=== PATIENT | female | born 1960 | race African-American/Black ===

== ENCOUNTER 2016-12-14 11:49 | Inpatient (IN) | payer OTHER ==
[~2016-12-14] VITALS: Ht 165.1 cm; Wt 132.1 kg
--- NOTE | ~2016-12-14 | WRIGHTHP ---
[place], [place] PATIENT HISTORY AND PHYSICAL EXAM NAME: SHAUNNA FREEDMAN [facility] #: [id number] UNIT #: [id number] ROOM: 411 DOCTOR: JOHANN VILLAGRAN MD BIRTHDATE: [birth year] DOS: 12/14/2016 HISTORY OF PRESENT ILLNESS: 1. The patient is a 56-year-old female with a past medical history of severe chronic hypocalcemia. The patient has history of normal parathyroid hormone and calcitonin levels. 2. Poor compliance with treatment. 3. History of thyroidectomy in the year of 1999 and hypothyroidism. 4. Vitamin D deficiency, severe. 5. Chronic primary insomnia. 6. Morbid obesity. 7. Benign essential hypertension. 8. GERD and esophagitis. 9. Hypothyroidism. The patient presented to the Emergency Department for increased weakness, shortness of breath, like she has when she has very low calcium levels. The patient was found to have a low calcium level of 5.5 in the Emergency Department and she was only taking her calcium pills once a day instead of 3 times a day. The patient also had low potassium of 3.3 and elevated C-reactive protein. The patient was also found to have mild congestive heart failure on the chest x-ray. Significant fatigue for the last several weeks ____ dyspnea on exertion. REVIEW OF SYSTEMS: LUNGS: Some increasing shortness of breath and dyspnea on exertion. GASTROINTESTINAL: No nausea, vomiting or diarrhea, but she does have constipation. CARDIOVASCULAR SYSTEM: No chest pain or palpitations. SOCIAL HISTORY: Lives by herself. Denies smoking cigarettes, alcohol and drug abuse. FAMILY HISTORY: Noncontributory. MEDICATIONS: The patient is taking calcium once a day, vitamin D, levothyroxine, metoprolol, and omeprazole. FAMILY HISTORY: Noncontributory. ALLERGIES: No known drug allergies. PHYSICAL EXAMINATION: GENERAL: Alert and oriented x 3, no visible distress, morbidly obese. HEENT AND NECK: Extraocular movements are intact. Sclerae are anicteric. Oral mucosa is moist and clean. No obvious facial weakness. Neck is supple without any lymphadenopathy. No thyromegaly. No JVD. No carotid arterial bruits. LUNGS: Clear to auscultation. No wheezing. No rhonchi. [place], [place] PATIENT HISTORY AND PHYSICAL EXAM NAME: SHAUNNA FREEDMAN [facility] #: [id number] UNIT #: [id number] ROOM: 411 DOCTOR: JOHANN VILLAGRAN MD BIRTHDATE: [birth year] CARDIOVASCULAR SYSTEM: Heart rate is regular in rate and rhythm. S1 and S2 normally audible. No significant murmur or any other abnormal cardiac sounds. ABDOMEN: Soft, nontender. No obvious organomegaly. Bowel sounds are present. No obvious herniation. EXTREMITIES: Without significant cyanosis or edema. Warm to touch. CENTRAL NERVOUS SYSTEM: Alert and oriented x 3. Cranial nerves II-XII are intact. Speech is normal. The patient is able to move all extremities. Normal muscle strength. Deep tendon reflexes are equal on both sides. Plantars were downgoing. IMPRESSION: 1. The patient with severe hypocalcemia and some hypokalemia resulting in significant tiredness and weakness. I will replace her calcium with IV calcium infusion and follow her calcium levels and potassium levels. The patient has been checked in the past with no signs of any thyroid hormone abnormality. The patient's calcitonin and parathyroid hormone levels will be checked. 2. Hypothyroidism. The patient on Synthroid, but probably noncompliant with taking her medications properly, so she appears to be severely hypothyroid. Her TSH levels were elevated. 3. Benign essential hypertension with controlled blood pressures. Continue metoprolol. 4. Gastroesophageal reflux disease and esophagitis, controlled with Prilosec. 5. Morbid obesity and poor compliance with diet. 6. Hypokalemia to be treated with extra potassium supplements. I will also check her magnesium level. JOHANN VILLAGRAN MD CM:HISPHYS:PATIENT HISTORY AND PHYSICAL EXAMINATION 00 [phone] JOHANN VILLAGRAN MD 12/14/161940 interface
--- NOTE | ~2016-12-14 | DS ---
[place], [place] DISCHARGE SUMMARY NAME: SHAUNNA FREEDMAN [facility] #: [id number] UNIT #: [id number] ROOM: 411 DOCTOR: JOHANN VILLAGRAN MD BIRTHDATE: [birth year] DOS: 12/16/2016 DISCHARGE DIAGNOSES: 1. Acute diastolic type congestive heart failure, resolved. 2. Severe hypocalcemia, improved with calcium replacement. 3. Severe generalized weakness, improved with treatment. 4. Hypothyroidism with elevated TSH. 5. Benign essential hypertension with controlled blood pressures. 6. Vitamin D deficiency, elevated troponin I level, slight elevation, evaluated by Cardiology. 7. Gastroesophageal reflux disease and esophagitis, asymptomatic. 8. Morbid obesity with working on diet. 9. Chronic primary insomnia. 10. Vitamin D deficiency. 11. History of thyroidectomy and hypothyroidism in the year 1999. 12. Poor compliance with treatment and followup. 13. Severe and chronic hypocalcemia with normal parathyroid levels. HOSPITAL COURSE: The patient was admitted when she presented with increased weakness and shortness of breath and she was found to be in acute congestive heart failure, diastolic type, and severe hypocalcemia. The patient was forgetting to take her medications as well as thyroid meds. The patient also found to be hypothyroid. The patient was admitted and treated with calcium supplementation and hydration, and she was also seen by Cardiology. An echocardiogram was performed by Cardiology and she was cleared for discharge since she is feeling very well and she is asymptomatic now. Calcium level has improved to 7.3, and she is on 3 pills of calcium a day instead of 1 pill a day that she was taking at home and even, missing to take that off and on. Rule out for myocardial infarction with serial cardiac enzymes. Her first set of cardiac enzymes was minimally elevated at 0.073, which was evaluated by Cardiology and no further workup was recommended. A 2D echo was performed. The patient is asymptomatic. I will get a clearance from Cardiology prior to discharge. The patient was kept on heparin, which was finally discontinued by Cardiology. Now, Cardiology are recommending an outpatient stress test. DISCHARGE MANAGEMENT: Famotidine 10 mg a day, ibuprofen 800 mg b.i.d. p.r.n., omeprazole 20 mg a day, Citracal with vitamin D____3 times a day, levothyroxine 250 mcg daily. The patient can go back to work on Tuesday and follow with me on Tuesday. [place], [place] DISCHARGE SUMMARY NAME: SHAUNNA FREEDMAN UNIT #: [id number] ROOM: 411 DOCTOR: TYSHAWN REILLY,JOHNAN Patel BIRTHDATE: [birth year] JOHANN VILLAGRAN MD CM:ALANNA [phone] JOHANN VILLAGRAN MD 12/16/16 230 interface
--- NOTE | ~2016-12-14 | CON ---
[place], [place] REPORT OF CONSULTATION NAME: SHAUNNA FREEDMAN UNIT #: [id number] ROOM: 411 DOCTOR: SOTERO REILLY,ALBIN BIRTHDATE: [birth year] DOS: 12/15/2016 CARDIOLOGY CONSULTATION REASON FOR CONSULTATION: Congestive heart failure. CONSULTING PHYSICIAN: Devin Partida MD CLINICAL HISTORY: The patient is a 56-year-old patient with history of chronic hypocalcemia, vitamin D deficiency, morbid obesity, hypertension, GERD, came to the Emergency Room with increased weakness and shortness of breath. She denies any edema or orthopnea, no PND, no chest pain, palpitations or dizziness. No nausea, vomiting or diarrhea. Cardiology consult for further recommendations. She denies any headache. No blurred vision or double vision. No tingling, numbness or weakness. No vomiting, diarrhea, no hematemesis, no hematuria. No joint tenderness or pains. Her only complaint is generalized weakness and also some shortness of breath. REVIEW OF SYSTEMS: Review of the 8 systems negative except as mentioned above. PAST MEDICAL HISTORY: 1. Hypertension. 2. Acid reflux. 3. Morbid obesity. 4. Chronic hypocalcemia. 5. History of thyroid surgery with hypothyroidism. 6. History of noncompliance with medications. PAST SURGICAL HISTORY: History of thyroid surgery in 1999. FAMILY HISTORY: Noncontributory. SOCIAL HISTORY: The patient lives by herself. Denies any tobacco or alcohol use and the patient does not use any illicit drugs. HOME MEDICATIONS: Reviewed. ALLERGIES: The patient has no known drug allergies. PHYSICAL EXAMINATION: VITAL SIGNS: Blood pressure 150/88, pulse 78, respiratory rate 14. GENERAL: Alert, comfortable, in no acute distress. HEENT: Pupils are round and equal. No jaundice. Tongue was moist and pharynx was clear. NECK: Supple. No distended neck veins. No carotid bruits. CHEST: Symmetrical, nontender. LUNGS: Clear to auscultation bilaterally. HEART: Regular rhythm, no S3, no palpable thrills. ABDOMEN: Obese, nontender. Bowel sounds normal. EXTREMITIES: Showed trace edema. Distal pulses are palpable. [place], [place] REPORT OF CONSULTATION NAME: SHAUNNA FREEDMAN UNIT #: [id number] ROOM: [facility] DOCTOR: SOTERO REILLY,ALBIN BIRTHDATE: [birth year] SKIN: Warm and dry. No cyanosis, no clubbing. NEUROLOGIC: The patient is alert, oriented. No focal neurologic deficit. RECTAL: Deferred. GENITOURINARY: Deferred. REVIEW OF THE DIAGNOSTIC TESTS: EKG showed sinus rhythm, right atrial enlargement, LV hypertrophy, normal QT interval. There is T inversion in lead 1 and aVL. CBC, chemistry, labs reviewed. Total CPK of 467, MB 1.9, the troponin was 0.04, hemoglobin 9.8. Potassium 3.4, creatinine 1.25, calcium 5.7, TSH 12.9. IMPRESSION: 1. Dyspnea, possible acute on chronic diastolic heart failure. 2. Borderline elevation of troponin. 3. Anemia. 4. Hypokalemia. 5. Acute renal insufficiency. 6. Hypertension. 7. Hypocalcemia. 8. History of hypothyroidism. 9. Diet controlled diabetes. RECOMMENDATIONS: 1. She denies any chest pain. Her breathing is much better. 2. She did receive Lasix yesterday. 3. Repeat her cardiac enzymes and check 2D echo for LV function and valvular function. 4. Her electrolytes are being monitored and managed by Dr. Partida. 5. Further recommendations will be based on her symptoms and her echo findings and her cardiac enzymes. 6. Possibly she would need a stress test prior to discharge. ALBIN BEY MD CM:CONSTR:REPORT OF CONSULTATION 2232 12/16/16 0529 interface
--- NOTE | ~2016-12-14 | PR ---
[place], [place] PROGRESS NOTE NAME: SHAUNNA FREEDMAN UNIT #: [id number] ROOM: 411 DOCTOR: ALBIN BEY MD BIRTHDATE: [birth year] DOS: 12/16/2016 REASON FOR VISIT: Congestive heart failure. SUBJECTIVE: The patient is feeling better. Denies any shortness of breath. She is more energetic and less fatigued. No dizziness, no palpitations, no nausea, vomiting. No headaches. No blurred vision or double vision. No cough or hemoptysis. No PND or orthopnea. REVIEW OF SYSTEMS: Review of the 8 systems negative except as described above. RHYTHM STRIPS: The patient in sinus rhythm. PHYSICAL EXAMINATION: VITAL SIGNS: Blood pressure 148/88, respiratory rate was 18, heart rate 92. GENERAL: Alert, comfortable, in no acute distress. HEENT: Pupils round, equal, no jaundice. NECK: Supple, no distended neck veins, no carotid bruit. CHEST: Nontender. LUNGS: Clear to auscultation bilaterally. HEART: Regular rhythm, no S3. ABDOMEN: Obese, nontender. Bowel sounds normal. EXTREMITIES: Showed trace edema. Distal pulses are palpable. SKIN: Warm and dry. No cyanosis, no clubbing. RECTAL: Deferred. IMPRESSION: 1. Acute diastolic heart failure, much better. 2. Generalized weakness, much improved. 3. Hypocalcemia per Dr. Partida. 4. History of hypothyroidism per Dr. Partida. 5. Hypertension, monitor her blood pressures closely and adjust medications. 6. Elevated total CPK, noncardiac. 7. I will check 2D echo. 8. We will discontinue heparin since her troponins are unremarkable and she has no chest pain. 9. Cardiology will see as needed and then she will need outpatient stress testing. 10. Modification for diet, exercise, weight loss discussed. [place], [place] PROGRESS NOTE NAME: TANOKITASHAUNNA R UNIT #: [id number] ROOM: 411 DOCTOR: ALBIN BEY MD BIRTHDATE: [birth year] ALBIN BEY MD CM:ENMA [id number] ALBIN BEY MD 12/16/16 1647 interface
--- NOTE | ~2016-12-14 | PR ---
[place], [place] PROGRESS NOTE [facility] [id number] UNIT #: [id number] ROOM: 411 DOCTOR: JOHANN VILLAGRAN MD BIRTHDATE: [birth year] DOS: 12/15/2016 SUBJECTIVE: The patient continues to improve. She is feeling stronger with the treatment. OBJECTIVE: VITAL SIGNS: Blood pressure 147/91, heart rate of 78 beats per minute, breathing 20 times per minute, afebrile. GENERAL APPEARANCE: The patient is alert and oriented x 3, in no visible distress. Obesity and generalized weakness. HEENT AND NECK: Exam within normal limits. CARDIOVASCULAR SYSTEM: Heart rate is regular in rate and rhythm. S1 and S2 normally audible. LUNGS: Clear to auscultation. ABDOMEN: Soft, nontender. No obvious organomegaly. Bowel sounds are present. EXTREMITIES: Without significant cyanosis or edema. IMPRESSION: 1. The patient with severe hypocalcemia from not taking enough calcium at home. The patient has no known history of hypoparathyroidism and her levels were ordered again, the results are still pending. 2. Negative cardiac enzymes. 3. Severe hypothyroidism. The patient not taking her pills regularly at home. The patient restarted on her Synthroid. Her TSH levels were elevated, but free T4 levels have been normal. The patient is taking 250 mcg of Synthroid daily now. 4. Hypokalemia for which the patient will get extra potassium supplements today. Her magnesium level was checked to be normal. 5. Benign essential hypertension with normalized blood pressures with treatment. 6. Morbid obesity. The patient is working with dietary. JOHANN VILLAGRAN MD CM:PNTRANS [id number] JOHANN VILLAGRAN MD 12/15/16 2253 interface
[~2016-12-14 11:49] MED LIST: Cimetidine400 MG PO; LISINOPRIL10 MG PO; Oscal,Oyster S500 MG PO; PRILOSEC20 M2 PO; SEPTRA DS 800 M1 TAB PO; SYNTHROID0.15 MG PO; Synthroid,Lev200 MCG PO; Synthroid,Levo50 MCG PO; TRAMADOL HCL50 MG PO; VITAMIN D5000 I3 PO; [UNRECOGNIZED DRUG - OTHER] PO
[2016-12-14 11:53] VITALS: BP 173/100
[2016-12-14 12:16] LABS: BASO % 0.4 % (0.0-1.0); EOS % 0.4 % (1.0-4.0); HEMATOCRIT 31.8 % (37.0-47.0); HEMOGLOBIN 9.8 g/dl (12.0-16.0); IG # 0.1 10*3/uL (0.0-0.1); LYMPH # 2.2 10*3/uL (1.3-4.4); LYMPH % 21.9 % (27.0-41.0); MEAN CELL VOLUME 76.8 fl (81.0-99.0); MEAN CORPUSCULAR HGB 23.7 pg (27.0-31.0); MEAN CORPUSCULAR HGB CONC 30.8 g/dl (33.0-37.0); MEAN PLATELET VOLUME 9.8 fl (9.6-12.3); MONO # 0.7 10*3/uL (0.1-1.0); MONO % 7.1 % (3.0-9.0); NEUT % 68.8 % (47.0-73.0); NUCLEATED RED BLOOD CELL 0.4 % (0.0-0.0); PLATELET COUNT AUTOMATED 399 10*3/uL (130-400); RED BLOOD COUNT 4.14 10*6/uL (4.10-5.10); WHITE BLOOD COUNT 10.2 10*3/uL (4.8-10.8)
[2016-12-14 12:24] LABS: INTERNATIONAL NORM RATIO 1.1 (2.0-3.5)
[2016-12-14 12:34] LABS: BILIRUBIN 1+ (NEGATIVE); BLOOD 1+ (NEGATIVE); CLARITY SL CLOUDY (CLEAR); COLOR YELLOW (YELLOW); GLUCOSE NEGATIVE (NEGATIVE); KETONE NEGATIVE (NEGATIVE); LEUKO ESTERASE TRACE (NEGATIVE); NITRITE NEGATIVE (NEGATIVE); PROTEIN 2+ (NEGATIVE)
[2016-12-14 12:34] LABS: ALBUMIN 3.3 gm/dl (3.1-4.5); BILIRUBIN, TOTAL 1.3 mg/dl (0.2-1.0); C-REACTIVE PROTEIN 5.44 MG/DL (0-0.3); CKMB 1.8 ng/ml (0.5-3.6); MAGNESIUM 1.9 mg/dL (1.5-2.1); POTASSIUM 3.3 mmol/L (3.5-5.1); TOTAL PROTEIN 8.5 gm/dL (6.4-8.2); TROPONIN I 0.038 ng/ml (<0.045)
[2016-12-14 12:51] LABS: URINE REFLEX COMMENT YES (NO)
[2016-12-14 12:53] LABS: BACTERIA 2+; WBC 16-20 wbc/hpf (0-5)
[2016-12-14 14:04] VITALS: BP 174/100
[2016-12-14 14:39] LABS: THYROID STIM HORMONE (HS) 12.9 uIU/ml (0.358-4.75)
[2016-12-14 15:00] VITALS: BP 172/100
[2016-12-14] MEDS ORDERED: ALLEGRA60 M2 PO (16:45)
[2016-12-14 20:00] VITALS: BP 170/118
[2016-12-15] VITALS: BP 162/100
[2016-12-15 03:20] VITALS: BP 147/91
[2016-12-15 07:33] LABS: POTASSIUM 3.4 mmol/L (3.5-5.1)
[2016-12-15 08:00] VITALS: BP 140/80; BP 150/88
[2016-12-15 12:00] VITALS: BP 140/60
[2016-12-15 15:27] LABS: TROPONIN I 0.026 ng/ml (<0.045)
[2016-12-15 17:16] VITALS: BP 142/78
[2016-12-15 20:00] VITALS: BP 140/80
[2016-12-16] VITALS: BP 160/80
[2016-12-16 06:56] LABS: POTASSIUM 3.8 mmol/L (3.5-5.1)
[2016-12-16 08:00] VITALS: BP 140/98
[2016-12-16 12:00] VITALS: BP 156/88
[2016-12-16 16:00] VITALS: BP 158/82
[2016-12-16] MEDS ORDERED: OYSTER SHELL CA1 T23 PO (17:39)
== END 2016-12-16 18:00 | disposition home or self-care (01) | DRG 292 ==
LOC: ED 11:49 → EDHOLD 14:55 → 4E 15:43
PROVIDERS: Emergency Medicine; Internal Medicine; Internal Medicine Cardiovascular Disease
DX: I11.0 Hypertensive heart disease with heart failure (principal); E83.51 Hypocalcemia; D64.9 Anemia, unspecified; E11.9 Type 2 diabetes mellitus without complications; E89.0 Postprocedural hypothyroidism; I50.31 Acute diastolic (congestive) heart failure; K21.0 Gastro-esophageal reflux disease with esophagitis; E66.01 Morbid (severe) obesity due to excess calories; F51.04 Psychophysiologic insomnia; E87.6 Hypokalemia; Z91.19 Patient's noncompliance with other medical treatment and regimen; Z68.42 Body mass index [BMI] 45.0-49.9, adult

== ENCOUNTER → 2017-01-27 | Outpatient (CLI) | payer OTHER ==
[~2017-01-27] MED LIST changes: +ALLEGRA60 M2 PO; +OYSTER SHELL CA1 T23 PO
== END | disposition home or self-care (01) ==
LOC: US 17:53
DX: R60.0 Localized edema (principal)

== ENCOUNTER 2017-02-01 12:39 | Inpatient (IN) | payer OTHER ==
[~2017-02-01] VITALS: Ht 165.1 cm; Wt 129.9 kg
--- NOTE | ~2017-02-01 | PR ---
[place], [place] PROGRESS NOTE NAME: SHAUNNA FREEDMAN [facility] #: [id number] UNIT #: [id number] ROOM: 505 DOCTOR: KEELEY REILLYALEXIS Chuy BIRTHDATE: [birth year] DOS: 02/05/2017 NEPHROLOGY FOLLOWUP NOTE SUBJECTIVE: The patient was seen and examined. She is awake and alert. She denies shortness of breath, nausea or vomiting. She denies any muscle twitching. She is anxious to be discharged to home. She did receive a dose of IV calcium today. I was called actually earlier today, not knowing her situation very well, but did give an order to give 2 grams of calcium gluconate IV. PHYSICAL EXAMINATION: VITAL SIGNS: Showed a temperature of 97.9, pulse 68, respirations 20, blood pressure 160/98. HEENT: Shows no JVD. LUNGS: Clear. HEART: Normal S1, S2. No rub, thrill or gallop. ABDOMEN: Soft, nontender. There is no organomegaly. EXTREMITIES: Showed no edema. SKIN: Showed no rash. LABORATORY DATA: Sodium 142, potassium 3.6, CO2 of 31, BUN 19, creatinine 1.06, glucose 101, calcium 6.3, phosphorus 5.5. Vitamin D level 71.8. Albumin of 2.6. Magnesium of 1.6. Neck ultrasound was reviewed, which did not reveal any abnormalities that I can gather. IMPRESSION AND PLAN: 1. Hypocalcemia. This is a chronic issue. The patient should continue her calcium supplements. She is on [place] plus D. She should continue this and I did note her phosphorus was somewhat on the higher side and she is taking Tums with meals. We would recommend two Tums with meals on discharge. 2. Hypertension. Continue medications. She is on a thiazide, which hopefully she may develop a side effect of hypercalcemia with this, to help her situation. 3. Hypokalemia. This is stable. She is on supplementation, which should continue on a thiazide diuretic. 4. Anemia. Follow H and H. 5. From a renal standpoint, she is acceptable for discharge. As mentioned, she should go home on 2 Tums with meals plus her calcium plus vitamin D supplementation she is already taking. Her other medications can continue as ordered. She should have labs drawn early next week and she should follow up in our office as well as her PCP's office. [place], [place] PROGRESS NOTE NAME: SHAUNNA FREEDMAN UNIT #: [id number] ROOM: [facility] DOCTOR: KEELEY REILLY,ALEXIS Vera BIRTHDATE: [birth year] ALEXIS MINA MD CM:ENMA [id number] ALEXIS MINA MD 02/07/17 0013 interface
--- NOTE | ~2017-02-01 | WRIGHTHP ---
[place], [place] PATIENT HISTORY AND PHYSICAL EXAM NAME: SHAUNNA FREEDMAN [facility] #: [id number] UNIT #: [id number] ROOM: [facility] DOCTOR: JOHANN VILLAGRAN MD BIRTHDATE: [birth year] DOS: 02/01/2017 HISTORY OF PRESENT ILLNESS: The patient is a 56-year-old female who presented to the Emergency Department with increasing complaints of weakness. For about 3 days, the patient has had some diarrhea and dry heaves and she was feeling weaker and she had not been eating good for a few days. The patient was evaluated in the Emergency Department and again found to be severely hypocalcemic and also hypokalemic with generalized weakness and recommended for admission and further management. After admission, Nephrology had been consulted to help me manage her severe and chronic hypocalcemia without hypoparathyroidism. The patient also is hypothyroid. The patient states she was taking her calcium supplements regularly. No chest pain, no shortness of breath. No other GI or urinary symptoms. PAST MEDICAL HISTORY: Diastolic type congestive heart failure; chronic severe hypocalcemia, resistant to treatment with normal parathyroid hormone levels in the past. REVIEW OF SYSTEMS: LUNGS: No increasing shortness of breath. GASTROINTESTINAL: The patient had recent diarrhea and dry heaves for 2 to 3 days. CARDIOVASCULAR: No chest pains or palpitations. FAMILY HISTORY: Noncontributory. SOCIAL HISTORY: Denies smoking cigarettes, alcohol, and drug abuse. HOME MEDICATIONS: Citracal 3 times a day, metoprolol 100 mg daily, potassium chloride 20 mEq daily, Bumex 0.5 mg daily, omeprazole 20 mg daily, levothyroxine 250 mcg daily. ALLERGIES: No known drug allergies. PHYSICAL EXAMINATION: GENERAL: The patient is alert and oriented x 3, morbidly obese, in no visible distress, just generalized weakness. VITAL SIGNS: Blood pressure 168/116, heart rate of 88 beats per minute, breathing 18 times per minute, temperature 98.3 degrees Fahrenheit. HEENT AND NECK: Extraocular movements are intact. Sclerae are anicteric. Oral mucosa is moist and clean. No obvious facial weakness. Neck is supple without any lymphadenopathy. No thyromegaly. No JVD. No carotid arterial bruits. LUNGS: Clear to auscultation. No wheezing. No rhonchi. CARDIOVASCULAR SYSTEM: Heart rate is regular in rate and rhythm. S1 and S2 normally audible. No significant murmur or any other abnormal cardiac sounds. ABDOMEN: Soft, nontender. No obvious organomegaly. Bowel sounds are present. No obvious herniation. EXTREMITIES: Without significant cyanosis or edema. Warm to touch. CENTRAL NERVOUS SYSTEM: Alert and oriented x 3. Cranial nerves II-XII are intact. Speech is normal. The patient is able to move all extremities. Normal [place], [place] PATIENT HISTORY AND PHYSICAL EXAM NAME: SHAUNNA FREEDMAN [facility] #: [id number] UNIT #: [id number] ROOM: [facility] DOCTOR: JOHANN VILLAGRAN MD BIRTHDATE: [birth year] muscle strength. Deep tendon reflexes are equal on both sides. Plantars were downgoing. LABORATORY AND DIAGNOSTIC DATA: Parathyroid level slightly elevated at 78, BUN and creatinine 17 and 1.16, potassium level of 3.4, calcium level of 5.7. Chest x-ray without acute abnormality. Hemoglobin 9.9. IMPRESSION AND PLAN: 1. The patient with acute over chronic hypocalcemia, apparently made worse with recent diarrhea and dry heaves, nausea that she had and not eating much for 2 to 3 days, probably from a viral gastroenteritis. The patient has been given calcium gluconate. Parathyroid levels have been checked and her calcium is being replaced. I am getting opinion from Nephrology regarding how to better manage her chronic hypocalcemia with generally normal parathyroid levels. 2. Generalized weakness and lethargy from severe hypokalemia and also dehydration from dry heaves, not eating well and diarrhea, probably gastroenteritis. The patient being hydrated with IV fluids and now she is tolerating diet. 3. Recent peripheral volume overload, which has been started on treatment with small doses of Bumex and potassium supplements. The patient has acute diastolic type congestive heart failure. 4. Hypothyroidism, for which she will be continued on Synthroid. 5. Benign essential hypertension with controlled blood pressures with metoprolol, which has been restarted. 6. Poor compliance with treatment and followup. 7. History of thyroidectomy in the year 1999. 8. Chronic primary insomnia. 9. Morbid obesity. The patient working with diet. 10. Gastroesophageal reflux disease and esophagitis, is asymptomatic with treatment. 11. Vitamin D deficiency, treated with supplements. 12. Diastolic type congestive heart failure; chronic severe hypocalcemia, resistant to treatment with normal parathyroid hormone levels in the past. 13. Chronic hypothyroidism and history of thyroidectomy. 14. History of benign essential hypertension. 15. Vitamin D deficiency. 16. Gastroesophageal reflux disease and esophagitis. 17. Morbid obesity. 18. Chronic primary insomnia. 19. Poor compliance with treatment and followup. [place], [place] PATIENT HISTORY AND PHYSICAL EXAM NAME: SHAUNNA FREEDMAN UNIT #: [id number] ROOM: [facility] DOCTOR: OJHANN VILLAGRAN MD BIRTHDATE: [birth year] JOHANN VILLAGRAN MD CM:HISPHYS:PATIENT HISTORY AND PHYSICAL EXAMINATION [phone] JOHANN VILLAGRAN MD 02/02/17 1347 interface
--- NOTE | ~2017-02-01 | DS ---
[place], [place] DISCHARGE SUMMARY NAME: SHAUNNA FREEDMAN [facility] #: [id number] UNIT #: [id number] ROOM: 505 DOCTOR: JOHANN VILLAGRAN MD BIRTHDATE: [birth year] DOS: 02/05/2017 DISCHARGE DIAGNOSES: 1. Chronic persistent hypocalcemia with normal parathyroid levels. 2. Acute over chronic hypocalcemia, resolved. 3. Benign essential hypertension. 4. Gastroesophageal reflux disease. 5. Morbid obesity. 6. Hypothyroidism. 7. Poor compliance with treatment and followup. 8. History of thyroidectomy in year 1999. 9. Chronic primary insomnia. 10. Esophagitis. 12. Vitamin D deficiency. 13. Diastolic type congestive heart failure. HOSPITAL COURSE: 1. The patient was admitted with lethargy and generalized weakness and was found to be severely hypocalcemic after a few days of diarrhea, which probably made her hypocalcemia worse than usual. The patient is chronically hypocalcemic despite of having normal parathyroid function. The patient's calcitriol levels were found to be normal. I got help from Nephrology to manage her and they added more oral calcium to the treatment and her calcium levels have improved to 6.3, phosphorus level at 5.5, albumin level at 2.6. The patient has been cleared for discharge by Nephrology today. 2. Benign essential hypertension with elevated blood pressures. Her metoprolol was changed to b.i.d. and blood pressures have improved. 3. Gastroesophageal reflux disease and esophagitis, asymptomatic with omeprazole. 4. Calcitriol level normal. Parathyroid level slightly elevated at 78.2. Ionized calcium improved to 3.4 from 2.7 at admission. DISCHARGE MANAGEMENT: Calcium carbonate 1000 mg t.i.d., Citracal 2 tablets t.i.d., hydrochlorothiazide 25 mg daily, metoprolol 100 mg b.i.d., hydrochlorothiazide 25 mg a day, potassium chloride 20 mEq daily, omeprazole 20 mg a day, levothyroxine 250 mcg daily. Follow up at the office with me within a few days. [place], [place] DISCHARGE SUMMARY NAME: SHAUNNA FREEDMAN UNIT #: [id number] ROOM: 505 DOCTOR: JOHANN VILLAGRAN MD BIRTHDATE: [birth year] JOHANN VILLAGRAN MD CM:ALANNA [phone] JOHANN VILLAGRAN MD 02/05/171913 interface
--- NOTE | ~2017-02-01 | PR ---
[place], [place] PROGRESS NOTE NAME[id number] UNIT #: [id number] ROOM: 505 DOCTOR: JOHANN VILLAGRAN MD BIRTHDATE: [birth year] DOS: 02/03/2017 SUBJECTIVE: The patient continues to feel stronger and better. OBJECTIVE: VITAL SIGNS: Blood pressure 149/81, heart rate of 66 beats per minute, breathing 18 times per minute, temperature 98 degrees Fahrenheit. GENERAL APPEARANCE: Generalized weakness. ABDOMEN: Obesity. HEENT AND NECK: Exam within normal limits. CARDIOVASCULAR SYSTEM: Heart rate is regular in rate and rhythm. S1 and S2 normally audible. LUNGS: Clear to auscultation. EXTREMITIES: Without significant cyanosis or edema. IMPRESSION: 1. The patient with chronic and severe hypocalcemia with no hypoparathyroidism. Calcium levels are improving with calcium gluconate and oral calcium along with Tums. Dr. Calhoun, the operations support manager is following her and suggested that Bumex may also be contributing to hypocalcemia. The patient has only taking Bumex for very few days and her chronic hypocalcemia has been around for more than 10 years. 2. Benign essential hypertension with better controlled blood pressures now. The patient on metoprolol and hydrochlorothiazide. 3. Gastroesophageal reflux disease and esophagitis. The patient is on omeprazole. JOHANN VILLAGRAN MD CM:PNTRANS [phone] JOHANN VILLAGRAN MD 02/04/17 1117 interface
--- NOTE | ~2017-02-01 | PR ---
[place], [place] PROGRESS NOTE NAME: SHAUNNA FREEDMAN [facility] #: [id number] UNIT #: [id number] ROOM: 505 DOCTOR: JOHANN VILLAGRAN MD BIRTHDATE: [birth year] DOS: 02/04/2017 SUBJECTIVE: The patient is feeling much better today, being followed by Nephrology for severe persistent hypokalemia. The patient is being treated with intravenous calcium gluconate and oral calcium supplements. Dr. Bradley, the examination supervisor is following the patient. I need good advice from him for treating hypocalcemia long-term. The patient's Bumex, which was only given to her for a few days prior to coming to the hospital has been stopped. IMPRESSION: 1. Hypokalemia, treated and improved. 2. Gastroesophageal reflux disease and esophagitis, asymptomatic with omeprazole. 3. Benign essential hypertension with controlled blood pressures. JOHANN VILLAGRAN MD CM:PNTRANS [id number] JOHANN VILLAGRAN MD 02/05/17 0922 interface
[2017-02-01 12:50] VITALS: BP 163/104
[2017-02-01] MEDS ORDERED: Synthroid,Lev200 MCG PO (12:51)
[2017-02-01] MEDS ORDERED: POTASSIUM CHLO20 ME4 PO (12:52)
[2017-02-01] MEDS ORDERED: BUMETANIDE0.5 MG PO (12:52)
[2017-02-01 13:42] LABS: BASO % 0.2 % (0.0-1.0); EOS % 0.2 % (1.0-4.0); HEMATOCRIT 31.7 % (37.0-47.0); HEMOGLOBIN 9.9 g/dl (12.0-16.0); IG # 0.1 10*3/uL (0.0-0.1); LYMPH # 1.7 10*3/uL (1.3-4.4); LYMPH % 19.1 % (27.0-41.0); MEAN CELL VOLUME 75.1 fl (81.0-99.0); MEAN CORPUSCULAR HGB 23.5 pg (27.0-31.0); MEAN CORPUSCULAR HGB CONC 31.2 g/dl (33.0-37.0); MONO # 0.7 10*3/uL (0.1-1.0); MONO % 7.8 % (3.0-9.0); NEUT # 6.4 10*3/uL (2.3-7.9); NEUT % 71.7 % (47.0-73.0); NUCLEATED RED BLOOD CELL 0.4 % (0.0-0.0); PLATELET COUNT AUTOMATED 431 10*3/uL (130-400); RED BLOOD COUNT 4.22 10*6/uL (4.10-5.10)
[2017-02-01 13:51] LABS: INTERNATIONAL NORM RATIO 1.2 (2.0-3.5); PROTHROMBIN TIME 12.8 SECONDS (9.0-12.4)
[2017-02-01 14:00] LABS: BILIRUBIN, TOTAL 1.2 mg/dl (0.2-1.0); C-REACTIVE PROTEIN 4.21 MG/DL (0-0.3); MAGNESIUM 1.6 mg/dL (1.5-2.1); POTASSIUM 3.4 mmol/L (3.5-5.1); TOTAL PROTEIN 7.7 gm/dL (6.4-8.2); TROPONIN I 0.017 ng/ml (<0.045)
[2017-02-01 15:33] VITALS: BP 154/102
[2017-02-01 16:15] VITALS: BP 160/116
[2017-02-01 16:34] VITALS: BP 160/116
[2017-02-01] MEDS ORDERED: TOPROL XL100 MG PO (18:36)
[2017-02-01 20:00] VITALS: BP 125/65
[2017-02-02 00:02] VITALS: BP 177/116
[2017-02-02 07:19] LABS: ALBUMIN 3.1 gm/dl (3.1-4.5); MAGNESIUM 1.9 mg/dL (1.5-2.1); PHOSPHOROUS 6.8 mg/dL (2.5-4.9); POTASSIUM 3.4 mmol/L (3.5-5.1)
[2017-02-02 08:00] VITALS: BP 168/118
[2017-02-02 12:00] VITALS: BP 135/83
[2017-02-02 16:00] VITALS: BP 159/100
[2017-02-02 20:00] VITALS: BP 130/60
[2017-02-03] VITALS: BP 140/100
[2017-02-03 04:00] VITALS: BP 150/84
[2017-02-03 07:43] LABS: ALBUMIN 2.8 gm/dl (3.1-4.5); POTASSIUM 3.5 mmol/L (3.5-5.1)
[2017-02-03 08:00] VITALS: BP 142/84; BP 143/92
[2017-02-03 12:00] VITALS: BP 147/90
[2017-02-03 16:00] VITALS: BP 149/81
[2017-02-03 20:00] VITALS: BP 146/98
[2017-02-04] VITALS: BP 155/97
[2017-02-04 07:33] LABS: ALBUMIN 2.6 gm/dl (3.1-4.5); MAGNESIUM 1.5 mg/dL (1.5-2.1); POTASSIUM 3.4 mmol/L (3.5-5.1)
[2017-02-04 07:34] LABS: PHOSPHOROUS 6.2 mg/dL (2.5-4.9)
[2017-02-04 08:00] VITALS: BP 142/82; BP 149/97
[2017-02-04 13:40] VITALS: BP 152/86
[2017-02-04 16:00] VITALS: BP 147/87
[2017-02-04 20:00] VITALS: BP 131/83
[2017-02-05] VITALS: BP 153/89
[2017-02-05 06:39] LABS: ALBUMIN 2.6 gm/dl (3.1-4.5); BUN 19 mg/dl (7-24); CARBON DIOXIDE 31 mmol/L (21-32); CHLORIDE 103 mmol/L (98-107); EST GLOM FILT AFRICAN AMERICAN > 60 ml/min; GLUCOSE 101 mg/dL (65-99); MAGNESIUM 1.6 mg/dL (1.5-2.1); PHOSPHOROUS 5.5 mg/dL (2.5-4.9); POTASSIUM 3.6 mmol/L (3.5-5.1); SODIUM 142 mmol/L (136-145)
[2017-02-05 08:00] VITALS: BP 170/100
[2017-02-05 12:00] VITALS: BP 160/98
[2017-02-05 16:00] VITALS: BP 160/92
[2017-02-05] MEDS ORDERED: HYDR25T PO (18:29)
[2017-02-05] MEDS ORDERED: CALCIUM CARBON500 M1 PO (18:29)
[2017-02-05] MEDS ORDERED: OYSTER SHELL CA1 T23 PO (18:29)
[2017-02-05] MEDS ORDERED: METOPROLOL SUC100 M1 PO (18:31)
== END 2017-02-05 18:57 | disposition home or self-care (01) | DRG 641 ==
LOC: ED 12:39 → 5E 15:02 → EDHOLD 15:02 → 5E 15:36
PROVIDERS: Emergency Medicine; Internal Medicine Nephrology
DX: E83.51 Hypocalcemia (principal); I50.30 Unspecified diastolic (congestive) heart failure; N18.3 Chronic kidney disease, stage 3 (moderate); I13.0 Hypertensive heart and chronic kidney disease with heart failure and stage 1 through stage 4 chronic kidney disease, or unspecified chronic kidney disease; K21.9 Gastro-esophageal reflux disease without esophagitis; E66.01 Morbid (severe) obesity due to excess calories; E03.9 Hypothyroidism, unspecified; F51.01 Primary insomnia; E66.9 Obesity, unspecified; E55.9 Vitamin D deficiency, unspecified; K20.9 Esophagitis, unspecified; E87.6 Hypokalemia; D64.9 Anemia, unspecified; R60.0 Localized edema; Z91.19 Patient's noncompliance with other medical treatment and regimen; Z90.710 Acquired absence of both cervix and uterus; Z68.42 Body mass index [BMI] 45.0-49.9, adult; Z79.899 Other long term (current) drug therapy

== ENCOUNTER → 2017-06-23 | Outpatient (CLI) | payer OTHER ==
[~2017-06-23] MED LIST changes: +BUMETANIDE0.5 MG PO; +CALCIUM CARBON500 M1 PO; +HYDR25T PO; +METOPROLOL SUC100 M1 PO; +POTASSIUM CHLO20 ME4 PO; +TOPROL XL100 MG PO
== END | disposition home or self-care (01) ==
LOC: RAD 13:15
DX: Z13.820 Encounter for screening for osteoporosis (principal); Z78.0 Asymptomatic menopausal state; Z90.710 Acquired absence of both cervix and uterus; Z85.850 Personal history of malignant neoplasm of thyroid

== ENCOUNTER 2020-09-13 13:20 | Inpatient (IN) | payer OTHER ==
[~2020-09-13] VITALS: Ht 168 cm; Wt 128.6 kg
[2020-09-13 13:26] VITALS: BP 152/74
[2020-09-13 14:24] LABS: BASO % 0.2 % (0.0-1.0); HEMATOCRIT 38.4 % (37.0-47.0); LYMPH # 0.8 10*3/uL (1.3-4.4); LYMPH % 14.1 % (27.0-41.0); MEAN CORPUSCULAR HGB 22.9 pg (27.0-31.0); MEAN CORPUSCULAR HGB CONC 30.5 g/dl (33.0-37.0); MONO # 0.5 10*3/uL (0.1-1.0); MONO % 8.3 % (3.0-9.0); NEUT # 4.4 10*3/uL (2.3-7.9); NEUT % 77.1 % (47.0-73.0); PLATELET COUNT AUTOMATED 239 10*3/uL (130-400); RED BLOOD COUNT 5.12 10*6/uL (4.10-5.10); RED CELL DISTRI WIDTH 18.5 % (0-14.5); WHITE BLOOD COUNT 5.8 10*3/uL (4.8-10.8)
[2020-09-13 14:39] LABS: ALBUMIN 3.1 gm/dl (3.1-4.5); CREATININE 1.44 mg/dL (0.55-1.02)
--- NOTE | 2020-09-13 14:42 | NUR ---
PT REFUSED COVID-19 SWAB AT THIS TIME.
[2020-09-13 14:54] LABS: POTASSIUM 2.4 mmol/L (3.5-5.1)
--- NOTE | 2020-09-13 15:51 | NUR ---
PT'S SON SEDA PROVIDED GOLD COLORED & SILVER COLORED CHAINS WITH A GOLD AND SILVER COLORED MAEGAN IN THE LOBBY WITH AN UPDATE ON PT'S STATUS.
[2020-09-13] MEDS ORDERED: POTASSIUM CHLO20 ME3 PO (16:35)
[2020-09-13 16:42] VITALS: BP 151/73
--- NOTE | 2020-09-13 16:53 | NUR ---
PT POSITIONED FOR COMFORT W/O ADDITIONAL COMPLAINTS VOICED,SAFETY PRECAUTIONS INTACT AND CALL LIGHT WITHIN REACH.
[2020-09-13 17:11] VITALS: BP 151/74
[2020-09-13] MEDS ORDERED: PROVENTIL HFA6.7 GM INH (17:12)
[2020-09-13] MEDS ORDERED: ZOFRAN4 MG PO (17:12)
[2020-09-13] MEDS ORDERED: PREDNISONE20 M1 PO (17:12)
[2020-09-13 19:11] LABS: BILIRUBIN Negative (Negative); BLOOD 1+ (Negative); CLARITY Cloudy (Clear); COLOR Yellow (Yellow); GLUCOSE Negative (Negative); KETONE Negative (Negative); LEUKO ESTERASE 1+ (Negative); NITRITE Negative (Negative); SPECIFIC GRAVITY <= 1.005 (1.001-1.030); UROBILINOGEN 0.2 E.U./dl (0.0-1.0)
[2020-09-13 19:18] LABS: BACTERIA 3+; EPITHELIAL CELLS TNTC; RBC 0-2 rbc/hpf (0-2)
[2020-09-13 19:55] VITALS: BP 144/47
--- NOTE | 2020-09-13 19:56 | NUR ---
PT VOICES NO C/O.SHE IS BEING ADMITTED.SHE IS TEXTING ON HER PHONE.VITALS STABLE. RESP EASY.---ARTEMIO OSBORN RN
[2020-09-13 20:45] VITALS: BP 156/74
--- NOTE | 2020-09-13 20:45 | NUR ---
A 60, admitted to , under the services of GABINO Salvador DO with a diagnosis of PERSON UNDER INVESTIGATION FOR COVID-19. Chief complaint is MULTIPLE COMPLAINTS. Patient arrived via bed from ER. Monitor applied. Initial assessment completed. Vital signs taken and recorded. GABINO SALVADOR DO notified of admission to the unit. Orders received. See assessment for past medical history, medications and allergies. Patient and/or family oriented to unit. [address] visitation policy reviewed. Clothing/patient valuable form completed. SACHI MELGAR
--- NOTE | 2020-09-13 21:00 | NUR ---
PT IS SITTING UP IN BED AT THIS TIME. VITALS WNL, PULSE OX 95% ON ROOM AIR. RESPS EASY AND NONLABORED. PT DENIES ANY C/O OF DISCOMFORT BUT IS REQUESTING SOMETHING TO HELP HER SLEEP. ORDERS RECIEVED FROM DR BREWSTER. BED LOW, CALL LIGHT WITHIN REACH. WILL CONTINUE TO MONITOR.
[2020-09-14] VITALS: BP 153/92
[2020-09-14 06:47] LABS: HEMATOCRIT 36.4 % (37.0-47.0); MEAN CELL VOLUME 76.5 fl (81.0-99.0); MEAN CORPUSCULAR HGB 23.1 pg (27.0-31.0); MEAN CORPUSCULAR HGB CONC 30.2 g/dl (33.0-37.0); MEAN PLATELET VOLUME 10.4 fl (9.6-12.3); RED BLOOD COUNT 4.76 10*6/uL (4.10-5.10); RED CELL DISTRI WIDTH 18.8 % (0-14.5); WHITE BLOOD COUNT 4.1 10*3/uL (4.8-10.8)
[2020-09-14 06:53] LABS: PLATELET COUNT AUTOMATED 234 10*3/uL (130-400)
[2020-09-14 07:11] LABS: ALBUMIN 2.7 gm/dl (3.1-4.5); CREATININE 1.31 mg/dL (0.55-1.02); POTASSIUM 3.2 mmol/L (3.5-5.1); TOTAL PROTEIN 8.6 gm/dL (6.4-8.2)
[2020-09-14 07:18] LABS: THYROID STIM HORMONE (HS) 1.46 uIU/ml (0.358-4.75)
[2020-09-14 07:32] LABS: ATYPICAL LYMPHS 1 % (0-0); MICROCYTOSIS SLIGHT; PLATELET SUFFICIENCY NORMAL (NORMAL); TOTAL CELLS COUNTED 100 #CELLS
[2020-09-14 07:33] LABS: BURR CELLS FEW
[2020-09-14 08:00] VITALS: BP 146/78
--- NOTE | 2020-09-14 08:16 | NUR ---
NOTIFIED REGARDING CRITICAL CALCIUM LEVEL.
[2020-09-14 08:55] LABS: FERRITIN 220.7 ng/mL (10.0-291.0); PTH INTACT 24.8 pg/mL (18.5-88.0); VITAMIN D, 25-HYDROXY 38.3 ng/mL (30-100)
[2020-09-14 12:00] VITALS: BP 134/68
--- NOTE | 2020-09-14 12:00 | NUR ---
AWARE OF ABG RESULTS. PATIENT TO BE PLACED ON 4LNC.
[2020-09-14 12:06] LABS: ABG BASE EXCESS 1.7 mmol/L (-2.0-2.0); ARTERIAL BLOOD GAS PH 7.428 (7.35-7.45)
[2020-09-14 16:00] VITALS: BP 146/64
--- NOTE | 2020-09-14 17:38 | NUR ---
PT MEDICATED WITH PO TYLENOL PER PRN ORDER FOR C/O HEADACHE. WILL MONITOR EFFECTIVENESS.
--- NOTE | 2020-09-14 19:29 | NUR ---
24 HR CHART CHECK COMPLETE.
[2020-09-14 20:00] VITALS: BP 139/70
[2020-09-15] VITALS: BP 149/93
[2020-09-15 06:50] LABS: BASO % 0.2 % (0.0-1.0); HEMATOCRIT 35.2 % (37.0-47.0); LYMPH # 1.6 10*3/uL (1.3-4.4); MEAN CELL VOLUME 77.2 fl (81.0-99.0); MEAN CORPUSCULAR HGB 23.2 pg (27.0-31.0); MEAN CORPUSCULAR HGB CONC 30.1 g/dl (33.0-37.0); MONO # 0.4 10*3/uL (0.1-1.0); MONO % 5.4 % (3.0-9.0); NEUT # 4.6 10*3/uL (2.3-7.9); NEUT % 70.2 % (47.0-73.0); PLATELET COUNT AUTOMATED 289 10*3/uL (130-400); RED BLOOD COUNT 4.56 10*6/uL (4.10-5.10); RED CELL DISTRI WIDTH 18.9 % (0-14.5); WHITE BLOOD COUNT 6.5 10*3/uL (4.8-10.8)
[2020-09-15 07:06] LABS: ALBUMIN 2.8 gm/dl (3.1-4.5); CREATININE 1.25 mg/dL (0.55-1.02); POTASSIUM 3.1 mmol/L (3.5-5.1); TOTAL PROTEIN 8.3 gm/dL (6.4-8.2)
[2020-09-15 08:00] VITALS: BP 149/79
--- NOTE | 2020-09-15 08:48 | NUR ---
Hydrodynamics Professor spoke to patient via phone. Patient states lives at home with her son. There are 15 steps in the home. Physician: Dr. Devin Partida Pharmacy: [facility] Home health services: none Patient's level of ADLs: INDEPENDENT Patient has working utilities: yes DME: none Follow-up physician's appointment after d/c: will be made by the hospitalist nurse director upon discharge Does patient want to access PORTAL?: no Discharge plan discussed with patient. She lives at home with her son. She states she is independent in her ADLs and ambulation. Discussed home health care services and she declines. CM will continue to follow for any discharge planning needs. When medically stable she will be discharged to home. She states her son will provide transportation on discharge. CONNIE GARDNER
--- NOTE | 2020-09-15 09:54 | NUR ---
'S OFFICE NOTIFIED OF CONSULT. OBSTETRICIAN.
--- NOTE | 2020-09-15 10:19 | NUR ---
PT MEDICATED WITH PO TYLENOL PER PRN ORDER FOR C/O HEADACHE. WILL MONITOR EFFECTIVENESS.
--- NOTE | 2020-09-15 11:19 | NUR ---
TYLENOL EFFECTIVE PER PT.
[2020-09-15 12:00] VITALS: BP 127/59
[2020-09-15 13:31] LABS: ABG BASE EXCESS 1.4 mmol/L (-2.0-2.0); ARTERIAL BLOOD GAS PH 7.424 (7.35-7.45)
[2020-09-15 14:00] VITALS: BP 127/59
[2020-09-15 16:00] VITALS: BP 137/84
[2020-09-15 20:00] VITALS: BP 154/88
--- NOTE | 2020-09-15 21:20 | NUR ---
ASSISTED TO BATHROOM PT INCONTINENT OF BOWEL. CLEANED UP AND RESTING BACK IN BED. OXYGEN IN USE. TOLERATED ROUTINE MED WITH NO PROBLEM. CALL LIGHT IN REACH. SEE SHIFT ASSESSMENT.
--- NOTE | 2020-09-15 21:40 | NUR ---
REQUESTING SLEEPING PILL. MEDICATED WITH RESTORIL PO PER PRN ORDER, SEE EMAR. CALL LIGHT IN REACH. OXYGEN IN USE.
[2020-09-16] VITALS: BP 148/87
--- NOTE | 2020-09-16 | NUR ---
PT SLEEPING IN BED, AWAKENS EASILY. NO C/O AT THIS TIME. CALL LIGHT IN REACH. OXYGEN IN USE. NO SOB NOTED.
--- NOTE | 2020-09-16 04:15 | NUR ---
PT C/O HEADACHE, RATES PAIN 8 ON PAIN SCALE 0-10. MEDICATED WITH TYLENOL PO PER PRN ORDER, SEE EMAR. CALL LIGHT IN REACH. OXYGEN IN USE.
--- NOTE | 2020-09-16 05:10 | NUR ---
RESTING IN BED. STATES PAIN MEDICATION HELPED. NO NEW COMPLAINTS AT THIS TIME. CALL LIGHT IN REACH.
[2020-09-16 06:54] LABS: BASO % 0.2 % (0.0-1.0); HEMATOCRIT 35.9 % (37.0-47.0); LYMPH # 0.8 10*3/uL (1.3-4.4); LYMPH % 12.7 % (27.0-41.0); MEAN CELL VOLUME 75.3 fl (81.0-99.0); MEAN CORPUSCULAR HGB 22.6 pg (27.0-31.0); MEAN CORPUSCULAR HGB CONC 30.1 g/dl (33.0-37.0); MEAN PLATELET VOLUME 10.6 fl (9.6-12.3); MONO # 0.2 10*3/uL (0.1-1.0); MONO % 2.9 % (3.0-9.0); NEUT % 83.9 % (47.0-73.0); PLATELET COUNT AUTOMATED 320 10*3/uL (130-400); RED BLOOD COUNT 4.77 10*6/uL (4.10-5.10); WHITE BLOOD COUNT 5.9 10*3/uL (4.8-10.8)
[2020-09-16 07:28] LABS: POTASSIUM 3.5 mmol/L (3.5-5.1)
[2020-09-16 07:39] LABS: ALBUMIN 2.8 gm/dl (3.1-4.5); CREATININE 1.13 mg/dL (0.55-1.02); TOTAL PROTEIN 8.5 gm/dL (6.4-8.2)
[2020-09-16 08:00] VITALS: BP 127/96
--- NOTE | 2020-09-16 09:14 | NUR ---
CM spoke to patient via phone. No new needs or request at this time. Discussed home health care services and she declines. CM will continue to follow for any discharge planning needs. When medically stable she will be discharged to home.
[2020-09-16 11:06] LABS: ABG BASE EXCESS 1.9 mmol/L (-2.0-2.0); ARTERIAL BLOOD GAS PH 7.408 (7.35-7.45)
[2020-09-16 12:00] VITALS: BP 148/80
[2020-09-16 16:00] VITALS: BP 141/76
--- NOTE | 2020-09-16 18:40 | NUR ---
A 60, admitted to , under the services of GABINO Salvador DO with a diagnosis of COVID 19. Chief complaint is SOB. Patient arrived via bed from ER. Monitor applied. Initial assessment completed. Vital signs taken and recorded. GABINO SALVADOR DO notified of admission to the unit. Orders received. See assessment for past medical history, medications and allergies. Patient and/or family oriented to unit. [facility] visitation policy reviewed. Clothing/patient valuable form completed. PHILLIP TORRES
[2020-09-16 20:00] VITALS: BP 144/87
[2020-09-17] VITALS: BP 158/101
[2020-09-17 07:33] LABS: HEMATOCRIT 37.7 % (37.0-47.0); LYMPH % 11.5 % (27.0-41.0); MEAN CELL VOLUME 76.6 fl (81.0-99.0); MEAN PLATELET VOLUME 10.4 fl (9.6-12.3); MONO # 0.6 10*3/uL (0.1-1.0); MONO % 6.6 % (3.0-9.0); NEUT # 6.9 10*3/uL (2.3-7.9); NEUT % 81.3 % (47.0-73.0); PLATELET COUNT AUTOMATED 375 10*3/uL (130-400); RED BLOOD COUNT 4.92 10*6/uL (4.10-5.10); RED CELL DISTRI WIDTH 18.8 % (0-14.5); WHITE BLOOD COUNT 8.4 10*3/uL (4.8-10.8)
[2020-09-17 08:00] VITALS: BP 139/78
[2020-09-17 08:10] LABS: ALBUMIN 2.7 gm/dl (3.1-4.5); CREATININE 1.23 mg/dL (0.55-1.02); TOTAL PROTEIN 8.5 gm/dL (6.4-8.2)
[2020-09-17 09:16] LABS: ARTERIAL BLOOD GAS PH 7.435 (7.35-7.45)
[2020-09-17 12:00] VITALS: BP 145/79
--- NOTE | 2020-09-17 13:27 | NUR ---
PATIENT ASSESSED FOR HOME O2. UPON ENTERING THE ROOM PATIENT STATES SHE JUST RETURNED FROM THE RESTROOM, SPO2 88% ON 4L/M. PATIENT SAT AND RESTED, SPO2 RETURNED TO 96% ON THE 4L HR 84. O2 TURNED OFF PATINET DSATURATED TO 82% HR 88. PATIENT PLACED BACK ON 4 L FOR AMBUALTION SPO2 86-88%. INCREASED TO 6L TO MAINTAINS AN SPO2 >90%.
--- NOTE | 2020-09-17 15:00 | NUR ---
ASSUMED CARE OF PT. PT C/O NOT BEING ABLE TO LEAVE. SPOKE WITH DR. THOMASON UNABLE TO GO HOME AT THIS TIME.
[2020-09-17 16:00] VITALS: BP 145/71
[2020-09-17 20:00] VITALS: BP 157/79
--- NOTE | 2020-09-17 21:25 | NUR ---
PT SITTING UP IN RECLINER, COMPLAINING OF HEADACHE, RATES PAIN 4 ON PAIN SCALE 0-10. MEDICATED WITH TYLENOL PO PER PRN ORDER, SEE EMAR. CALL LIGHT IN REACH. SEE SHIFT ASSESSMENT.
--- NOTE | 2020-09-17 21:40 | NUR ---
REQUESTING SLEEPING MED. MEDICATED WITH RESTORIL PO PER PRN ORDER, SEE EMAR. CALL LIGHT IN REACH.
--- NOTE | 2020-09-17 22:20 | NUR ---
PT RESTING IN BED. STATES MEDICATION HELPED. CALL LIGHT IN REACH.
[2020-09-18] VITALS: BP 156/93
--- NOTE | 2020-09-18 01:00 | NUR ---
RESTING IN BED. NO C/O AT THIS TIME. NO SOB NOTED. OXYGEN IN USE. CALL LIGHT IN REACH. SEE SHIFT ASSESSMENT.
[2020-09-18 06:41] LABS: HEMATOCRIT 36.4 % (37.0-47.0); MEAN CELL VOLUME 75.5 fl (81.0-99.0); MEAN CORPUSCULAR HGB 22.8 pg (27.0-31.0); MEAN CORPUSCULAR HGB CONC 30.2 g/dl (33.0-37.0); MEAN PLATELET VOLUME 10.4 fl (9.6-12.3); PLATELET COUNT AUTOMATED 440 10*3/uL (130-400); RED BLOOD COUNT 4.82 10*6/uL (4.10-5.10); RED CELL DISTRI WIDTH 18.6 % (0-14.5); WHITE BLOOD COUNT 9.6 10*3/uL (4.8-10.8)
[2020-09-18 06:49] LABS: ALBUMIN 2.8 gm/dl (3.1-4.5); ALKALINE PHOSPHATASE 114 U/L (45-117); BUN 17 mg/dl (7-24); CHLORIDE 99 mmol/L (98-107); CREATININE 1.09 mg/dL (0.55-1.02); LDH 386 U/L (84-246); POTASSIUM 3.3 mmol/L (3.5-5.1); SGOT/AST 39 IU/L (3-35); SGPT/ALT 58 U/L (12-78); SODIUM 137 mmol/L (136-145); TOTAL PROTEIN 8.5 gm/dL (6.4-8.2)
[2020-09-18 08:00] VITALS: BP 124/58
[2020-09-18 08:18] LABS: ATYPICAL LYMPHS 1 % (0-0); TOTAL CELLS COUNTED 100 #CELLS
[2020-09-18 08:19] LABS: PLATELET SUFFICIENCY HIGH (NORMAL); POLYCHROMASIA SLIGHT; SCHISTOCYTES FEW
[2020-09-18 08:20] LABS: MICROCYTOSIS SLIGHT; TARGET CELLS FEW
--- NOTE | 2020-09-18 10:41 | NUR ---
PT REFUSED ABG AT THIS TIME
[2020-09-18 12:00] VITALS: BP 151/85
[2020-09-18 16:00] VITALS: BP 148/61
[2020-09-18] MEDS ORDERED: DECADRON6 M1 PO (16:00)
--- NOTE | 2020-09-18 17:44 | NUR ---
PT DISCHARGED HOME AT THIS TIME AFTER O2 TANK WAS DELIVERED BY [facility]. DISCHARGE INSTRUCTIONS REVIEWED. HEPLOCK AND SEAM CHECKER DISCONTINUED.
--- NOTE | 2020-09-18 17:56 | NUR ---
PT DISCHARGED HOME VIA WHEELCHAIR TO PRIVATE CAR. VSS. 02 INTACT AT 6LNC.
== END 2020-09-18 17:56 | disposition home or self-care (01) | DRG 177 ==
LOC: ED 13:20 → EDHOLD 17:23 → 4E 17:23 → EDHOLD 17:47 → 4E 20:25
PROVIDERS: Internal Medicine Critical Care Medicine; Physician Assistant; Student in an Organized Health Care Education/Training Program; ADMIT Family Medicine; ATTEND Family Medicine
DX: U07.1 COVID-19 (principal); J96.01 Acute respiratory failure with hypoxia; J12.89 Other viral pneumonia; E87.1 Hypo-osmolality and hyponatremia; Z68.41 Body mass index [BMI] 40.0-44.9, adult; D68.59 Other primary thrombophilia; E87.6 Hypokalemia; E83.51 Hypocalcemia; D50.9 Iron deficiency anemia, unspecified; I12.9 Hypertensive chronic kidney disease with stage 1 through stage 4 chronic kidney disease, or unspecified chronic kidney disease; N18.31 Chronic kidney disease, stage 3a; J30.2 Other seasonal allergic rhinitis; R74.01 Elevation of levels of liver transaminase levels; E03.9 Hypothyroidism, unspecified; K21.9 Gastro-esophageal reflux disease without esophagitis; R73.9 Hyperglycemia, unspecified; R31.21 Asymptomatic microscopic hematuria; E66.01 Morbid (severe) obesity due to excess calories; E83.39 Other disorders of phosphorus metabolism; Z90.710 Acquired absence of both cervix and uterus; Z98.891 History of uterine scar from previous surgery; Z83.3 Family history of diabetes mellitus; Z80.1 Family history of malignant neoplasm of trachea, bronchus and lung

== ENCOUNTER → 2020-10-14 | Outpatient (CLI) | payer BC ==
[~2020-10-14] MED LIST changes: +DECADRON6 M1 PO; +POTASSIUM CHLO20 ME3 PO; +PREDNISONE20 M1 PO; +PROVENTIL HFA6.7 GM INH; +ZOFRAN4 MG PO
[2020-10-14 14:06] LABS: BASO % 0.1 % (0.0-1.0); EOS # 0.3 10*3/uL (0.0-0.4); EOS % 3.2 % (1.0-4.0); HEMATOCRIT 31.2 % (37.0-47.0); LYMPH # 2.1 10*3/uL (1.3-4.4); MEAN CELL VOLUME 81.3 fl (81.0-99.0); MEAN CORPUSCULAR HGB CONC 29.5 g/dl (33.0-37.0); MEAN PLATELET VOLUME 9.8 fl (9.6-12.3); MONO # 0.7 10*3/uL (0.1-1.0); NEUT # 5.2 10*3/uL (2.3-7.9); NEUT % 62.3 % (47.0-73.0); PLATELET COUNT AUTOMATED 344 10*3/uL (130-400); RED BLOOD COUNT 3.84 10*6/uL (4.10-5.10); RED CELL DISTRI WIDTH 21.4 % (0-14.5); WHITE BLOOD COUNT 8.4 10*3/uL (4.8-10.8)
[2020-10-14 14:24] LABS: ALBUMIN 2.8 gm/dl (3.1-4.5); CREATININE 1.24 mg/dL (0.55-1.02); FREE T4 0.88 ng/dl (0.76-1.46); POTASSIUM 3.8 mmol/L (3.5-5.1); TOTAL PROTEIN 8.2 gm/dL (6.4-8.2)
[2020-10-14 14:41] LABS: THYROID STIM HORMONE (HS) 8.62 uIU/ml (0.358-4.75)
[2020-10-14 15:32] LABS: VITAMIN D, 25-HYDROXY 29.5 ng/mL (30-100)
== END | disposition home or self-care (01) ==
LOC: LAB 13:24
PROVIDERS: ATTEND Internal Medicine
DX: E03.9 Hypothyroidism, unspecified (principal); J45.40 Moderate persistent asthma, uncomplicated; R53.81 Other malaise; E55.9 Vitamin D deficiency, unspecified; D52.9 Folate deficiency anemia, unspecified; D51.9 Vitamin B12 deficiency anemia, unspecified; E87.5 Hyperkalemia; R74.8 Abnormal levels of other serum enzymes

== ENCOUNTER → 2021-01-16 | Outpatient (CLI) | payer BC | END | disposition home or self-care (01) | LOC: COVID19 12:34 | PROVIDERS: ATTEND Internal Medicine | DX: Z11.52 Encounter for screening for COVID-19 (principal) ==

== ENCOUNTER → 2021-01-22 | Outpatient (CLI) | payer BC | END | disposition home or self-care (01) | LOC: CARD 14:42 | PROVIDERS: ATTEND Internal Medicine | DX: I34.8 Other nonrheumatic mitral valve disorders (principal) ==

== ENCOUNTER → 2021-03-04 | Outpatient (CLI) | payer BC ==
[2021-03-04 16:05] LABS: BASO % 0.4 % (0.0-1.0); EOS # 0.1 10*3/uL (0.0-0.4); EOS % 1.2 % (1.0-4.0); HEMATOCRIT 32.8 % (37.0-47.0); LYMPH # 2.6 10*3/uL (1.3-4.4); LYMPH % 27.1 % (27.0-41.0); MEAN CELL VOLUME 78.1 fl (81.0-99.0); MEAN CORPUSCULAR HGB 23.1 pg (27.0-31.0); MEAN CORPUSCULAR HGB CONC 29.6 g/dl (33.0-37.0); MEAN PLATELET VOLUME 9.2 fl (9.6-12.3); MONO # 0.8 10*3/uL (0.1-1.0); MONO % 8.1 % (3.0-9.0); NEUT % 62.5 % (47.0-73.0); PLATELET COUNT AUTOMATED 354 10*3/uL (130-400); RED CELL DISTRI WIDTH 19.1 % (0-14.5); WHITE BLOOD COUNT 9.5 10*3/uL (4.8-10.8)
[2021-03-04 16:32] LABS: ALBUMIN 3.4 gm/dl (3.1-4.5); CREATININE 1.19 mg/dL (0.55-1.02); POTASSIUM 3.8 mmol/L (3.5-5.1); TOTAL PROTEIN 9.1 gm/dL (6.4-8.2)
[2021-03-04 16:33] LABS: FREE T4 1.02 ng/dl (0.76-1.46)
[2021-03-04 16:38] LABS: THYROID STIM HORMONE (HS) 4.21 uIU/ml (0.358-4.75)
[2021-03-04 16:57] LABS: VITAMIN D, 25-HYDROXY 28.7 ng/mL (30-100)
== END | disposition home or self-care (01) ==
LOC: LAB 15:43
PROVIDERS: ATTEND Internal Medicine
DX: Z00.01 Encounter for general adult medical examination with abnormal findings (principal); E03.9 Hypothyroidism, unspecified; D52.9 Folate deficiency anemia, unspecified; D51.9 Vitamin B12 deficiency anemia, unspecified; R70.0 Elevated erythrocyte sedimentation rate; R79.89 Other specified abnormal findings of blood chemistry; E55.9 Vitamin D deficiency, unspecified; R53.81 Other malaise; Z13.1 Encounter for screening for diabetes mellitus; Z13.21 Encounter for screening for nutritional disorder; Z13.220 Encounter for screening for lipoid disorders

== ENCOUNTER → 2021-07-20 | Outpatient (CLI) | payer BC | END | disposition home or self-care (01) | LOC: US 06-18 16:00 | PROVIDERS: ATTEND Internal Medicine | DX: R60.0 Localized edema (principal) ==

== ENCOUNTER → 2024-07-05 | Outpatient (CLI) | payer OTHER ==
[2024-07-05 15:04] LABS: BASO % 0.4 % (0.0-1.0); EOS # 0.2 10*3/uL (0.0-0.4); HEMATOCRIT 29.1 % (37.0-47.0); LYMPH # 2.3 10*3/uL (1.3-4.4); LYMPH % 30.4 % (27.0-41.0); MEAN CELL VOLUME 82.2 fl (81.0-99.0); MEAN CORPUSCULAR HGB 24.9 pg (27.0-31.0); MEAN CORPUSCULAR HGB CONC 30.2 g/dl (33.0-37.0); MEAN PLATELET VOLUME 8.9 fl (9.6-12.3); MONO # 0.6 10*3/uL (0.1-1.0); MONO % 7.7 % (3.0-9.0); NEUT # 4.3 10*3/uL (2.3-7.9); NEUT % 57.9 % (47.0-73.0); PLATELET COUNT AUTOMATED 269 10*3/uL (130-400); RED BLOOD COUNT 3.54 10*6/uL (4.10-5.10); RED CELL DISTRI WIDTH 19.5 % (0-14.5); WHITE BLOOD COUNT 7.5 10*3/uL (4.8-10.8)
[2024-07-05 15:30] LABS: FREE T4 0.67 ng/dl (0.89-1.76); POTASSIUM 3.1 mmol/L (3.4-5.1); TOTAL PROTEIN 8.6 gm/dL (6.0-8.0)
[2024-07-05 16:02] LABS: VITAMIN D, 25-HYDROXY 18.3 ng/mL (30-100)
== END | disposition home or self-care (01) ==
LOC: LAB 14:42
PROVIDERS: ATTEND Internal Medicine
DX: E78.2 Mixed hyperlipidemia (principal); E03.9 Hypothyroidism, unspecified; E55.9 Vitamin D deficiency, unspecified

== ENCOUNTER → 2024-07-12 | Outpatient (CLI) | payer OTHER | END | disposition home or self-care (01) | LOC: LAB 15:25 | PROVIDERS: ATTEND Internal Medicine | DX: E83.51 Hypocalcemia (principal) ==